=== PATIENT | female | born 1985 | race Hispanic/Latino ===

== ENCOUNTER 2018-11-20 17:03 | Emergency (ER) | payer OTHER ==
[~2018-11-20] VITALS: Ht 157.5 cm; Wt 72.6 kg
--- OUTSIDE RECORDS SUMMARY | 2018-11-20 17:06 | XMS REPORT | Clinical Summary ---
Author Author [facility] Address Unknown Phone Unavailable Care Team Providers Care Community Service Patrol Officer Name Role Phone PCP Unavailable Allergies No Known Allergies Medications End Date Status Medication Sig Dispensed Refills Start Date Active PNV Take 1 tablet 0 22/iron,gluc/folic/dss/dh by mouth. a (PNV OB+DHA ORAL) Active Problems Problem Noted Date Uterine size date discrepancy, third trimester 10/21/2018 Third trimester 10/07/2018 Insufficient care, second trimester - late transfer of care 09/09/2018 Encounters Care Team Description Date Type Specialty Nabila Estevez MD GA: 37w4d 11/19/2018 Routine Obstetrics and Gynecology Nabila Estevez MD GA: 36w2d 11/10/2018 Routine Obstetrics and Gynecology Nabila Estevez MD GA: 35w3d 11/04/2018 Routine Obstetrics and Gynecology Nabila Estevez MD GA: 33w3d 10/21/2018 Routine Obstetrics and Gynecology Nabila Estevez MD GA: 31w3d 10/07/2018 Routine Obstetrics and Gynecology Amy Menchaca S[employer]IOR [employer]IX ADMINISTRATOR 10/07/2018 Abstract Obstetrics and Gynecology Nabila Estevez MD GA: 27w3d 09/09/2018 Routine Obstetrics and Gynecology Nabila Estevez MD 08/28/2018 Orders Only Obstetrics and Gynecology Nabila Estevez MD 08/24/2018 Orders Only Obstetrics and Gynecology Nabila Estevez MD Advice Only 08/20/2018 Telephone Obstetrics and Gynecology Nabila Estevez MD Referral 08/14/2018 Telephone Obstetrics and Gynecology Nabila Estevez MD 08/12/2018 Initial Obstetrics and Gynecology after 11/19/2017 Immunizations Name Dates Previously Given Next Due Influenza Four-QIV PF 08/04/2018 3+YR IM Tdap 09/09/2018 Family History Medical History Relation Name Comments No Known Problem Father No Known Problem Mother Relation Name Status Comments Father Alive Mother Alive Social History Date Tobacco Use Types Packs/Day Years Used Never Smoker Smokeless Tobacco: Never Used Alcohol Use Drinks/Week oz/Week Comments No Alcohol Habits Answer Date Recorded How often do you have a drink containing alcohol? Never 08/12/2018 How many drinks containing alcohol do you have on Not asked 08/12/2018 a typical day when you are drinking? How often do you have six or more drinks on one Not asked 08/12/2018 occasion? Currently Estimated Date of Delivery Comments Yes 12/06/2018 Based on last menstrual period of 03/01/2018 Sex Assigned at Date Recorded Not on file Industry Job Start Date Occupation Not on file Not on file Not on file Travel End Travel History Travel Start No recent travel history available. Last Filed Vital Signs Time Taken Vital Sign Reading 11/19/2018 8:08 AM [employer]OPE DRY HOUSE OPERATOR Blood Pressure 124/81 11/19/2018 8:07 AM DOPE DRY HOUSE OPERATOR Pulse 81 11/19/2018 8:07 AM DOPE DRY HOUSE OPERATOR Temperature 36.6 C (97.9 F) - Respiratory Rate - - Oxygen Saturation - - Inhaled Oxygen - Concentration 11/19/2018 8:07 AM DOPE DRY HOUSE OPERATOR Weight 72.6 kg (160 lb) 11/19/2018 8:07 AM DOPE DRY HOUSE OPERATOR Height 157.5 cm (5' 2") 11/19/2018 8:07 AM DOPE DRY HOUSE OPERATOR Body Mass Index 29.26 Plan of Treatment Care Team Description Date Type Specialty Nabila Estevez MD [address] [place] [address] [phone] 11/26/2018 Routine Obstetrics and Gynecology Nabila Estevez MD [address] [place] [address] [phone] 12/02/2018 Routine Obstetrics and Gynecology Nabila Estevez MD [address] [place] [address] [phone] 12/07/2018 Hospital Obstetrics Encounter Nabila Estevez MD [address] [place] [address] [phone] 12/07/2018 Hospital Obstetrics Encounter Nabila Estevez MD [address] [place] [address] [phone] 12/10/2018 Routine Obstetrics and Gynecology Procedures Comments Procedure Name Priority Date/Time Associated Diagnosis POCT AMB URINE DIPSTICK Routine 11/19/2018 Encounter for 9:34 AM DOPE DRY HOUSE OPERATOR care of first , third trimester US OB LIMITED 1 + FETUSES Routine 11/10/2018 Encounter for 1:49 PM DOPE DRY HOUSE OPERATOR related examination in third trimester Third trimester POCT AMB URINE DIPSTICK Routine 11/10/2018 Encounter for 8:23 AM DOPE DRY HOUSE OPERATOR related examination in third trimester STREP GP B CULT/DNA PROBE Routine 11/04/2018 9:00 AM DOPE DRY HOUSE OPERATOR POCT AMB URINE DIPSTICK Routine 11/04/2018 Encounter for 8:55 AM DOPE DRY HOUSE OPERATOR care in third trimester of first US OB FOLLOW UP Routine 10/21/2018 Third trimester TRANSABDOMINAL APPROACH 3:43 PM DOPE DRY HOUSE OPERATOR Uterine size date discrepancy, third trimester POCT AMB URINE DIPSTICK Routine 10/21/2018 Third trimester 11:03 AM DOPE DRY HOUSE OPERATOR GEST DIABETES 1-HR SCREEN AP Routine 10/07/2018 Encounter for 8:30 AM DOPE DRY HOUSE OPERATOR related examination in third trimester POCT AMB URINE DIPSTICK Routine 10/07/2018 31 weeks gestation of 7:58 AM DOPE [employer]Y HOUSE OPERATOR GEST DIABETES 1-HR SCREEN Routine 09/09/2018 8:55 AM DOPE DRY HOUSE OPERATOR RPR Routine 09/09/2018 8:55 AM DOPE DRY HOUSE OPERATOR HIV-1 ANTIGEN WITH Routine 09/09/2018 HIV-1/2 ANTIBODY 8:55 AM DOPE DRY HOUSE OPERATOR CBC W/PLT COUNT & AUTO Routine 09/09/2018 DIFFERENTIAL 8:55 AM DOPE DRY HOUSE OPERATOR POCT AMB URINE DIPSTICK Routine 09/09/2018 Encounter for 8:35 AM DOPE DRY HOUSE OPERATOR related examination in third trimester GEST DIABETES 1-HR SCREEN AP Routine 09/09/2018 HIV-1 ANTIGEN WITH Routine 09/09/2018 HIV-1/2 ANTIBODY HIV-1/O/2 Routine 09/09/2018 CBC (HEMOGRAM ONLY) Routine 09/09/2018 IP CONSULT TO Routine 08/28/2018 PERINATOLOGY CHG BIOPHYSICAL Routine 08/24/2018 PROFILE URINE CULTURE, ROUTINE AP Routine 08/13/2018 Second trimester 2:00 PM CDT URINALYSIS WITH Routine 08/13/2018 MICROSCOPIC IF INDICATED 2:00 PM CDT CHLAMYDIA/GC NANCY, Routine 08/13/2018 Second trimester CONFIRMATION 2:00 PM CDT POCT AMB URINE DIPSTICK Routine 08/13/2018 Second trimester 7:48 AM CDT US OB FOLLOW UP Routine 08/12/2018 Second trimester TRANSABDOMINAL APPROACH 3:43 PM CDT after 11/19/2017 Results * POCT OB Urine Dipstick (11/19/2018 9:34 AM DOPE DRY HOUSE OPERATOR) Only the most recent of 7 results within the time period is included. Color, UA Yellow Light Yellow, Yellow Clarity, UA Clear Clear Glucose Urine, POC Negative Negative Bilirubin Urine, POC Negative Negative Ketones Urine, POC Negative Negative Specific [place] Urine, 1.010 SG Ratio 1.005 SG Ratio, 1.010 SG POC Ratio, 1.015 SG Ratio, 1.020 SG Ratio, 1.025 SG Ratio, 1.030 SG Ratio Blood Urine, POC Negative Negative pH Urine, POC 7.0 pH units 5.0 pH units, 5.5 pH units, 6.0 pH units, 6.5 pH units, 7.0 pH units, 7.5 pH units, 8.0 pH units Protein Urine, POC Negative Negative Urobilinogen Urine, POC 0.2 mg/dL 0.2 mg/dL, 1 mg/dL Leukocyte Esterase Urine, Negative Negative POC Nitrite Urine, POC Negative Negative * Ultrasound OB limited 1 + fetuses (11/10/2018 1:49 PM DOPE DRY HOUSE OPERATOR) Biparietal Diameter mm Abdominal Circumference mm Femur Length mm Head Circumference mm HC/AC Estimated Weight grams Narrative Performed At [facility] 1985 11/10/18 Luis: 14.7 cm Fht: 128 bpm * STREP GP B CULT/DNA PROBE (11/04/2018 9:00 AM DOPE DRY HOUSE OPERATOR) Strep Gp B NANCY Negative Negative [facility] 1 Comment: Centers for Disease Control and Prevention (CDC) and [place] [employer] of Obstetricians and Gynecologists (ACOG) guidelines for prevention of group B streptococcal (GBS) disease specify co-collection of a vaginal and rectal swab specimen to maximize sensitivity of GBS detection. Per the CDC and ACOG, swabbing both the lower vagina and rectum substantially increases the yield of detection compared with sampling the vagina alone. Penicillin G, ampicillin, or cefazolin are indicated for intrapartum prophylaxis of GBS colonization. Reflex susceptibility testing should be performed prior to use of clindamycin only on GBS isolates from penicillin-allergic women who are considered a high risk for anaphylaxis. Treatment with vancomycin without additional testing is warranted if resistance to clindamycin is noted. Narrative Performed At Performed at: - [facility] [address] [place], [id number] Audio Video Repairer: Scout Burkett MD, Phone:[phone] Performing Organization Address City/State/Zipcode Phone Number [facility] 1 * Ultrasound OB follow-up transabdominal approach (10/21/2018 3:43 PM DOPE DRY HOUSE OPERATOR) Only the most recent of 2 results within the time period is included. Biparietal Diameter mm Abdominal Circumference mm Femoral Diameter cm Head Circumference mm HC/AC Estimated Weight grams Narrative Performed At [facility] 1985 LUIS / EFW ULTRASOUND REPORT Date performed: 10/21/17 LMP:02/25/18 GA:34w0d TABBY:12/02/18 position: cephalic FHT:139 bpm LUIS:14.2 cm BPD: 87.5mm=35 w2d HC: 317.3mm=35 w5d AC: 297.4mm=33 w5d FL: 65.4mm=33 w5d weight:2348.0 grams U/S GA: 34w6d TABBY:11/26/18 * GEST DIABETES 1-HR SCREEN (10/07/2018 8:30 AM DOPE DRY HOUSE OPERATOR) Only the most recent of 3 results within the time period is included. Specimen Blood Narrative Performed At Performing Organization Address [facility] Phone Number [facility] * RPR (09/09/2018 8:55 AM DOPE DRY HOUSE OPERATOR) RPR Non Reactive Non Reacti [facility] 1 Narrative Performed At Performed at:[facility] [address] [place], [place] [id number] Audio Video Repairer: Scout Burkett MD, Phone:[phone] Performing Organization Address [facility] Phone Number [facility] 1 * HIV-1 Antigen with HIV-1/2 Antibody (09/09/2018 8:55 AM DOPE DRY HOUSE OPERATOR) Only the most recent of 2 results within the time period is included. HIV Screen 4th Generation Non Reactive Non Reacti [facility] 1 wRfx Narrative Performed At Performed at:[facility], [id number] Audio Video Repairer: Scout Burkett MD, Phone:[phone] Performing Organization Address [facility] Phone Number [facility] 1 * CBC with platelet count + automated diff (09/09/2018 8:55 AM DOPE DRY HOUSE OPERATOR) WBC 9.6 3.4 - 10.8 x10E3/uL [facility] 1 RBC 4.19 3.77 - 5.28 x10E6/uL [facility] 1 Hemoglobin 13.1 11.1 - 15.9 g/dL [facility] 1 Hematocrit 39.6 34.0 - 46.6 % [facility] 1 MCV 95 79 - 97 fL [facility] 1 MCH 31.3 26.6 - 33.0 pg [facility] 1 MCHC 33.1 31.5 - 35.7 g/dL [facility] 1 RDW 13.4 12.3 - 15.4 % [facility] 1 Platelets 156 150 - 379 x10E3/uL [facility] 1 % Neutros 73 Not Estab. % [facility] % Lymphs 19 Not Estab. % [facility] 1 % Monos 5 Not Estab. % [facility] % Eos 1 Not Estab. % [facility] % Baso 0 Not Estab. % [facility] # Neutros 7.1 (H) 1.4 - 7.0 x10E3/uL [facility] # Lymphs 1.8 0.7 - 3.1 x10E3/uL [facility] # Monos 0.5 0.1 - 0.9 x10E3/uL [facility] 1 # Eos 0.1 0.0 - 0.4 x10E3/uL [facility] 1 Baso (Absolute) 0.0 0.0 - 0.2 x10E3/uL [facility] % Immature Grans 2 Not Estab. % [facility] 1 # Immature Grans 0.2 (H) 0.0 - 0.1 x10E3/uL [facility] 1 Comment: (An elevated percentage of Immature Granulocytes has not been found to be clinically significant as a sole clinical predictor of disease. Does NOT include bands or blast cells. associated physiological leukocytosis may also show increased immature granulocytes without clinical significance.) Narrative Performed At Performed at: - [id number] Audio Video Repairer: Scout Burkett MD, Phone:[phone] Performing Organization Address [facility] Phone Number [facility] * CBC (Hemogram only) (09/09/2018) Hemoglobin 13.1 12.0 - 15.0 GM/DL [facility] Hematocrit 39.6 36.0 - 45.0 % [facility] Specimen Blood Performing Organization Address [facility] Phone Number [facility] * HIV-1/O/2 (09/09/2018) HIV 1/O/2 Abs, Qual non-reactive [facility] Specimen Blood Performing Organization Address City/[facility] Phone Number [facility] * Inpatient consult to Perinatology (08/28/2018) Narrative Performed At * CHG BIOPHYSICAL PROFILE (08/24/2018) Narrative Performed At * Chlamydia/GC Urine Confirmation ([facility] Only) (08/13/2018 2:00 PM CDT) Chlamydia trachomatis, Negative Negative [facility] 1 NANCY Neisseria gonorrhoeae, Negative Negative [facility] 1 NANCY Specimen Urine Narrative Performed At Performed at:01 - [facility] [place] [facility] [place], [id number] Audio Video Repairer: Ro Lawrence MD, Phone:[phone] Performing Organization Address City/[facility] Phone Number [facility] * Urinalysis with Microscopic If Indicated (08/13/2018 2:00 PM CDT) Specific [place], UA 1.014 1.005 - 1.03 [facility] 1 pH, UA 8.0 (H) 5.0 - 7.5 [facility] 1 Color, UA Yellow Yellow [facility] 1 Appearance Cloudy (A) Clear [facility] 1 WBC Esterase Negative Negative [facility] 1 Protein, UA Negative Negative/T [facility] 1 Glucose, Urine Negative Negative [facility] 1 Ketones, UA Negative Negative [facility] 1 Blood, UA Negative Negative [facility] 1 Bilirubin, UA Negative Negative [facility] 1 Urobilinogen,Semi-Qn 0.2 0.2 - 1.0 mg/dL [facility] 1 Nitrite, UA Negative Negative [facility] 1 Microscopic Examination CommentComment: Microscopic [facility] 1 not indicated and not performed. Narrative Performed At Performed at: - [facility] [place], [id number] Audio Video Repairer: Scout Burkett MD, Phone:[phone] Performing Organization Address City/[facility]/Zipcode Phone Number [facility] * URINE CULTURE, ROUTINE ([facility] Only) (08/13/2018 2:00 PM CDT) Urine Culture, Routine Final report [facility] 1 Result 1 No growth [facility] 1 Specimen Urine Narrative Performed At Performed at: - [facility] [address] [place], [id number] Audio Video Repairer: Scout Burkett MD, Phone:[phone] Performing Organization Address City/State/Zipcode Phone Number [facility] 1 after 11/19/2017 Insurance Payer Benefit Subscriber ID Type Phone Address Plan / Group [employer]IG[employer] - [place] xxxxxxxxxxx HMO/POS HMO/POS OPEN ACCESS [employer]IG[employer] - [place] CARE CIG[employer] xxxxxxxxxxx HMO/POS HMO/POS/OP EN ACCESS
== END 2018-11-20 17:56 | disposition left against medical advice (07) ==
LOC: FSED 17:03
DX: Z04.1 Encounter for examination and observation following transport accident (principal); O26.893 Other specified pregnancy related conditions, third trimester
CPT/HCPCS: 99283